=== PATIENT | male | born 2000 | race Caucasian/White ===

== ENCOUNTER 2022-10-27 14:47 | Inpatient (IN) ==
[2022-10-27] MEDS ORDERED: ONDANSETRON INJ 2 MG/ML 2 ML VIAL IV STA ×2 (15:11→18:07)
[2022-10-27] MEDS ORDERED: SODIUM CHLORIDE 0.9% 1000ML 1,000 ML IV ONE (15:11)
--- NOTE | 2022-10-27 15:30 | Emergency Department Note ---
History of Present Illness General Chief complaint: Vomiting Stated complaint: STOMACH PAINS, VOMITING, FUENTES Time Seen by Provider: 10/27/22 15:06 History of Present Illness Provider Complaint: + nausea, + vomiting and + abdominal pain Onset (ago): day(s) 1 Description of Vomiting: no bilious, no bloody or no coffee grounds Description of Diarrhea: no tarry, no blood-streaked or no bloody (bright red) Associated Abdominal Pain: Yes Location of pain: + diffuse Severity: moderate Maximum Pain Intensity: 8 Current Pain Intensity: 8 Quality: + aching Pain Consistency: + intermittent Relieved By: + none Exacerbated By: + eating Context: + alcohol abuse; no trauma, no caffeine, no smoking or no marijuana use Associated symptoms: no chest pain, no fever/chills, no headaches, no shortness of breath, no weakness or no altered mental status Home Medications Medication Instructions Recorded Confirmed Type calcium carbonate 200 mg calcium 400 mg PO DIRECTED PRN .gi-upset 10/27/22 10/27/22 History (500 mg) chewable tablet (Tums) cetirizine 10 mg tablet (Zyrtec) 10 mg PO DAILY PRN Allergic 10/27/22 10/27/22 History Reaction fluticasone propionate 50 2 spray intranasal DAILY PRN Nasal 10/27/22 10/27/22 History mcg/actuation nasal Congestion spray,suspension (Flonase Allergy Relief) ibuprofen 200 mg tablet (Advil) 400 mg PO Q6H PRN Pain 10/27/22 10/27/22 History ondansetron 4 mg disintegrating 4 mg PO Q8H PRN nausea and 10/27/22 Rx tablet vomiting #30 tabs Allergies Allergy/AdvReac Type Severity Reaction Status Date / Time No Known Allergies Allergy Unverified 10/27/22 20:35 Past Med/Surg History Medical History No pertinent family history No pertinent past medical history Surgical History No pertinent past surgical history Social History Smoking Status: Never smoker Hx Alcohol Use: Yes Alcohol type: hard liquor Hx Substance Use: Yes Last Used Substance Other:: Substance Use Type Other:: Patient stated once a week on Sundays Preferred Language: [place] Senior Environmental Technician Required: No Beliefs That Will Affect Care: None Current Living Situation: Other Current Living Situation Comment: Patient is one of three living together -in [employer] Other Information That Helps Us Care for You: No Feels Safe at Home: Yes Safety Concerns: Feels Safe At This Time Assistive Devices: None Review of Systems A total of 10 systems reviewed and were otherwise negative Physical Exam Vital Signs: Vital Signs - 24 hr 10/27/22 15:24 10/27/22 15:46 10/27/22 16:45 Pulse Rate [Finger ] 79 94 H Pulse Rhythm [Fing er] Pulse Strength [Fi nger] Respiratory Rate 16 18 Respiratory Effort / Characteristics Non-Labored Sponta neous Non-Labored Sponta neous Respiratory Depth Normal Normal Respiratory Patter n Blood Pressure [Le ft Arm] 141/94 H 120/75 Blood Pressure Jaja n [Left Arm] 109 90 Pulse Oximetry 98 99 98 Oxygen Delivery Me thod Room Air Room Air Room Air 10/27/22 18:02 10/27/22 20:00 Pulse Rate [Finger ] 84 67 Pulse Rhythm [Fing er] Regular Pulse Strength [Fi nger] Normal Respiratory Rate 18 18 Respiratory Effort / Characteristics Non-Labored Sponta neous Non-Labored Respiratory Depth Normal Normal Respiratory Patter n Regular Blood Pressure [Le ft Arm] 116/72 Blood Pressure Jaja n [Left Arm] 86 Pulse Oximetry 97 98 Oxygen Delivery Me thod Room Air Room Air Physical Exam: Physical Exam GENERAL: He is oriented to person, place, and time. He appears well-developed and well-nourished. He does not appear distressed. HENT: Exam performed. - Head: Normocephalic and atraumatic. - Right Ear: External ear normal. No mastoid tenderness. - Left Ear: External ear normal. No mastoid tenderness. - Mouth/Throat: The oropharynx is clear and moist. No trismus in the jaw. No dental abscesses or uvula swelling. No oropharyngeal exudate or tonsillar abscesses. EYES: Conjunctivae and EOM are normal. Pupils are equal, round, and reactive to light. Right eye exhibits no discharge. Left eye exhibits no discharge. No scleral icterus. NECK: Normal range of motion. Neck supple. No JVD present. No spinous process tenderness present. No carotid bruit present. No rigidity. No tracheal deviation and normal range of motion present. No Brudzinski's sign and no Kernig's sign n oted. CV: Normal rate, regular rhythm, normal heart sounds and intact distal pulses. There is no peripheral edema. Palpable radial pulses bue. PULM/CHEST: Effort normal and breath sounds normal. No respiratory distress. No stridor. He has no wheezes. He has no rales. - Chest Wall: He exhibits no tenderness. ABD: The abdomen is soft. Bowel sounds are normal. He has no distension. No mass is present. There is no tenderness. There is no rebound, no guarding, no Garrido's sign and no tenderness at McBurney's point. Rovsig negative. MUSC/SKEL: Normal range of motion. There is no peripheral edema, tenderness or deformity. LYMPH: No cervical adenopathy. NEURO: He is alert and oriented to person, place, and time. He has normal strength. No cranial nerve deficit or sensory deficit. Coordination and gait normal. GCS eye subscore is 4. GCS verbal subscore is 5. GCS motor subscore is 6. Cerebellar tests wnl. SKIN: Skin is warm and dry. He is not diaphoretic. PSYCH: He has a normal mood and affect. Behavior is normal. Judgment and thought content normal. Course Course 1506: The patient was evaluated in room C2. A complete history and physical exam was performed Cardiac monitoring: An order was placed for continuous cardiac monitoring. The monitor shows a rate of 80 with sinus rhythm 1811: Labs show leukocytosis of 14.89. Lipase is mildly elevated at 221. CT of the abdomen pelvis is pending. Case signed out to Dr. Orozco. Administered Medications Hydromorphone HCl (Hydromorphone Inj 0.5 Mg/0.5 Ml Syr) 0.5 mg IV Q3H PRN PRN Reason: Pain Stop: 11/10/22 20:58 Last Admin: 10/28/22 12:56 Dose: 0.5 mg Documented By: Admin: 10/28/22 02:18 Dose: 0.5 mg Documented By: JOSE ANTONIO Admin: 10/27/22 23:21 Dose: 0.5 mg Documented By: JOSE ANTONIO Acetaminophen (Ofirmev) 1,000 mg in 100 mls @ 400 mls/hr IV Q8H BRYCE Stop: 10/30/22 20:59 Last Infusion: 10/28/22 14:47 Dose: 0 mls/hr Documented By: Admin: 10/28/22 14:09 Dose: 400 mls/hr Documented By: Infusion: 10/28/22 06:00 Dose: 0 mls/hr Documented By: JOSE ANTONIO Admin: 10/28/22 05:41 Dose: 400 mls/hr Documented By: JOSE ANTONIO Infusion: 10/27/22 22:13 Dose: 0 mls/hr Documented By: JOSE ANTONIO Admin: 10/27/22 21:55 Dose: 400 mls/hr Documented By: CAN Lactated Ringer's (Lr) 1,000 mls @ 150 mls/hr IV .Q6H40M BRYCE Stop: 10/28/22 21:04 Last Admin: 10/28/22 14:57 Dose: 150 mls/hr Documented By: Infusion: 10/28/22 14:30 Dose: 150 mls/hr Documented By: Admin: 10/28/22 07:49 Dose: 150 mls/hr Documented By: LEELEE Ondansetron HCl (Ondansetron Inj 2 Mg/Ml 2 Ml Vial) 4 mg IV Q6H [facility] Stop: 11/26/22 20:14 Last Admin: 10/28/22 14:09 Dose: 4 mg Documented By: Admin: 10/28/22 07:51 Dose: 4 mg Documented By: Admin: 10/28/22 02:17 Dose: 4 mg Documented By: JOSE ANTONIO Admin: 10/27/22 21:55 Dose: 4 mg Documented By: CAN Discontinued Medications Sodium Chloride (Nss 1000ml) 1,000 mls @ 999 mls/hr IV .Q1H1M ONE Stop: 10/27/22 16:11 Last Infusion: 10/27/22 16:26 Dose: 0 mls/hr Documented By: Admin: 10/27/22 15:22 Dose: 999 mls/hr Documented By: IRMA Pantoprazole Sodium 40 mg/ (Syringe) 10 mls @ 5 mls/min IV NOW ONE Stop: 10/27/22 19:36 Last Admin: 10/27/22 20:35 Dose: 5 mls/min Documented By: NILO Famotidine (Pepcid 20mg Iv Push) 20 mg in 5 mls @ 2.5 mls/min IV NOW STA Stop: 10/27/22 19:36 Last Admin: 10/27/22 19:41 Dose: 2.5 mls/min Documented By: NILO Lactated Ringer's (Lr) 1,000 mls @ 250 mls/hr IV .Q4H [facility]YCE Stop: 10/28/22 04:14 Last Infusion: 10/28/22 06:19 Dose: 0 mls/hr Documented By: JOSE ANTONIO Admin: 10/28/22 02:16 Dose: 250 mls/hr Documented By: JOSE ANTONIO Infusion: 10/28/22 01:55 Dose: 250 mls/hr Documented By: JOSE ANTONIO Admin: 10/27/22 21:55 Dose: 250 mls/hr Documented By: CAN Pantoprazole Sodium 40 mg/ (Syringe) 10 mls @ 5 mls/min IV DAILY BRYCE Stop: 11/27/22 08:59 Last Admin: 10/28/22 07:51 Dose: 5 mls/min Documented By: LEELEE Ioversol (Optiray 350 100ml) 87 ml IV ONCE ONE Stop: 10/27/22 18:59 Last Admin: 10/27/22 18:59 Dose: 87 ml Documented By: LUPE Ketorolac Tromethamine (Ketorolac Tromethamine 15 Mg/Ml Vial) 15 mg IV NOW STA Stop: 10/27/22 16:29 Last Admin: 10/27/22 16:40 Dose: 15 mg Documented By: IRMA Lorazepam (Lorazepam 0.5 Mg Tab) 0.5 mg PO NOW STA Stop: 10/28/22 12:20 Last Admin: 10/28/22 12:56 Dose: 0.5 mg Documented By: YVAN Morphine Sulfate (Morphine Sulfate 4 Mg/Ml 1 Ml Carp\Vial) 4 mg IV NOW STA Stop: 10/27/22 18:08 Last Admin: 10/27/22 18:10 Dose: 4 mg Documented By: IRMA Ondansetron HCl (Ondansetron Inj 2 Mg/Ml 2 Ml Vial) 4 mg IV NOW STA Stop: 10/27/22 15:12 Last Admin: 10/27/22 15:22 Dose: 4 mg Documented By: IRMA Ondansetron HCl (Ondansetron Inj 2 Mg/Ml 2 Ml Vial) 4 mg IV NOW STA Stop: 10/27/22 18:08 Last Admin: 10/27/22 18:10 Dose: 4 mg Documented By: IRMA Medical Decision Making Laboratory Data Result diagrams: 10/28/22 07:35 10/28/22 07:35 Lab Results 10/27/22 10/27/22 10/27/22 Range/Units 15:21 15:21 15:21 WBC 14.89 H (4.8-10.8) K/ul RBC 5.42 (4.63-6.08) M/uL Hgb 16.3 (14.0-18.0) g/dl Hct 46.4 (40.1-51.0) % MCV 85.6 (80.0-100.0) fL MCH 30.1 (25.0-34.0) pg MCHC 35.1 (32.0-36.0) g/dL RDW Std Deviation 38.1 (36.4-46.3) fL RDW Coeff of Araceli 12.3 (11.5-14.5) % Plt Count 279 (130-400) K/uL MPV 11.1 (9.4-12.4) fL Immature Gran % (Auto) 1.3 % Neut % (Auto) 89.5 % Lymph % (Auto) 5.7 % Dane % (Auto) 3.2 % Eos % (Auto) 0.0 % Baso % (Auto) 0.3 % Neut # (Auto) 13.34 H (1.4-6.5) K/uL Lymph # (Auto) 0.85 L (1.2-3.4) K/uL Dane # (Auto) 0.47 (0.24-0.82) K/uL Eos # (Auto) 0.00 (0-0.50) K/uL Baso # (Auto) 0.04 (0-0.2) K/uL Immature Gran # (Auto) 0.19 H (0.00-0.02) K/uL Sodium 141 (136-145) mmol/L Potassium 4.1 (3.5-5.1) mmol/L Chloride 102 (98-107) mmol/L Carbon Dioxide 31 (21-32) mmol/L Anion Gap 8 (3-11) BUN 14 (6-23) mg/dl Creatinine 0.98 (0.6-1.4) mg/dl Est Cr Clr Drug Dosing 108.4 ml/min Est GFR ( Amer) 127.2 ml/min Est GFR (Non-Af Amer) 109.8 ml/min BUN/Creatinine Ratio 14.3 (10-20) Glucose 111 H (70-99(Fasting)) mg/dl Calcium 9.6 (8.5-10.1) mg/dl Total Bilirubin 0.5 (0.2-1.0) mg/dl Direct Bilirubin 0.1 (0-0.2) mg/dl AST 21 (13-39) U/L ALT 18 (7-52) U/L Alkaline Phosphatase 55 (34-104) U/L Total Protein 7.7 (6.0-8.3) gm/dl Albumin 4.9 (3.4-5.0) gm/dl Triglycerides 150 (0-150) mg/dl Lipase 221 H (11-82) U/L SARS-CoV-2, RNA, NAAT (NEGATIVE) 10/27/22 Range/Units 19:40 WBC (4.8-10.8) K/ul RBC (4.63-6.08) M/uL Hgb (14.0-18.0) g/dl Hct (40.1-51.0) % MCV (80.0-100.0) fL MCH (25.0-34.0) pg MCHC (32.0-36.0) g/dL RDW Std Deviation (36.4-46.3) fL RDW Coeff of Araceli (11.5-14.5) % Plt Count (130-400) K/uL MPV (9.4-12.4) fL Immature Gran % (Auto) % Neut % (Auto) % Lymph % (Auto) % Dane % (Auto) % Eos % (Auto) % Baso % (Auto) % Neut # (Auto) (1.4-6.5) K/uL Lymph # (Auto) (1.2-3.4) K/uL Dane # (Auto) (0.24-0.82) K/uL Eos # (Auto) (0-0.50) K/uL Baso # (Auto) (0-0.2) K/uL Immature Gran # (Auto) (0.00-0.02) K/uL Sodium (136-145) mmol/L Potassium (3.5-5.1) mmol/L Chloride (98-107) mmol/L Carbon Dioxide (21-32) mmol/L Anion Gap (3-11) BUN (6-23) mg/dl Creatinine (0.6-1.4) mg/dl Est Cr Clr Drug Dosing ml/min Est GFR ( Amer) ml/min Est GFR (Non-Af Amer) ml/min BUN/Creatinine Ratio (10-20) Glucose (70-99(Fasting)) mg/dl Calcium (8.5-10.1) mg/dl Total Bilirubin (0.2-1.0) mg/dl Direct Bilirubin (0-0.2) mg/dl AST (13-39) U/L ALT (7-52) U/L Alkaline Phosphatase (34-104) U/L Total Protein (6.0-8.3) gm/dl Albumin (3.4-5.0) gm/dl Triglycerides (0-150) mg/dl Lipase (11-82) U/L SARS-CoV-2, RNA, NAAT NEGATIVE (NEGATIVE) MDM Narrative 1506: The patient was evaluated in room C2. A complete history and physical exam was performed Cardiac monitoring: An order was placed for continuous cardiac monitoring. The monitor shows a rate of 80 with sinus rhythm 1811: Labs show leukocytosis of 14.89. Lipase is mildly elevated at 221. CT of the abdomen pelvis is pending. Case signed out to Dr. Orozco. Impression & Plan Abdominal pain, Nausea & vomiting Discharge Plan Visit Data Chief Complaint: Vomiting Stated Complaint: STOMACH PAINS, VOMITING, FUENTES ED Provider: Geoffrey Orozco Discharge Problem: Abdominal pain, Nausea & vomiting Patient Disposition: Admitted As Inpatient Discharge Instructions Interventions: ED Discharge Assessment Last Done: 10/27/22 20:41 : Abdominal pain Qualifiers: Abdominal location: unspecified location Qualified Code(s): R10.9 - Unspecified abdominal pain Nausea & vomiting Qualifiers: Vomiting type: unspecified Qualified Code(s): R11.2 - Nausea with vomiting, unspecified
[2022-10-27 15:32] LABS: Basophils # (auto) 0.04 K/uL (0-0.2); Basophils % (auto) 0.3 %; Hematocrit (blood only) 46.4 % (40.1-51.0); Hemoglobin 16.3 g/dl (14.0-18.0); Immature Granulocytes # (auto) 0.19 K/uL (0.00-0.02); Immature Granulocytes % (auto) 1.3 %; Lymphocytes # (auto) 0.85 K/uL (1.2-3.4); Lymphocytes % (auto) 5.7 %; Mean Corpuscular Hemoglobin 30.1 pg (25.0-34.0); Mean Corpuscular Hgb Conc 35.1 g/dL (32.0-36.0); Mean Corpuscular Volume 85.6 fL (80.0-100.0); Mean Platelet Volume 11.1 fL (9.4-12.4); Monocytes # (auto) 0.47 K/uL (0.24-0.82); Monocytes % (auto) 3.2 %; Neutrophils # (auto) 13.34 K/uL (1.4-6.5); Neutrophils % (auto) 89.5 %; Platelet Count 279 K/uL (130-400); RDW Coefficient of Variation 12.3 % (11.5-14.5); RDW Standard Deviation 38.1 fL (36.4-46.3); Red Blood Count 5.42 M/uL (4.63-6.08); White Blood Count 14.89 K/ul (4.8-10.8)
[2022-10-27 15:51] LABS: Albumin Level 4.9 gm/dl (3.4-5.0); BUN Creatinine Ratio 14.3 (10-20); Bilirubin Direct 0.1 mg/dl (0-0.2); Bilirubin,Total 0.5 mg/dl (0.2-1.0); Calcium 9.6 mg/dl (8.5-10.1); Creatinine Clr Calc Pharmacy 108.4 ml/min; Est GFR (African American) 127.2 ml/min; Est GFR (Non-African American) 109.8 ml/min; Potassium 4.1 mmol/L (3.5-5.1); Total Protein 7.7 gm/dl (6.0-8.3)
[2022-10-27] MEDS ORDERED: KETOROLAC TROMETHAMINE 15 MG/ML VIAL IV STA (16:28)
[2022-10-27] MEDS ORDERED: MoRPHine SULFATE 4 MG/ML 1 ML CARP\\VIAL IV STA (18:07)
--- NOTE | 2022-10-27 18:09 | Emergency Department Note ---
ED Visit Note I received this patient at change of shift signout from Dr. Loo. Please see his note for initial history and physical exam. The patient presented to the emergency department with a 1 day history of abdominal pain nausea and vomiting. His pain was rather diffuse. He was found to have an elevation in his white blood cell count. Further radiographic studies were ordered in the way of a CT of the abdomen and pelvis. This test is still pending and will help with the patient's disposition. He is tolerating the contrast well but still having significant pain. I ordered some pain medication. I will reevaluate the patient further pending his response to the pain medication as well as the CT report. IMPRESSION: 1. There is infiltration and fluid identified surrounding the pancreatic head and the duodenum as above. Findings favor acute pancreatitis. Duodenal pathology such as duodenitis or ulcer disease could also potentially have this appearance. Correlate with clinical findings and serum amylase/lipase levels. 2. The pancreas enhances throughout. No organized peripancreatic fluid collection is seen. 3. Normal appendix. 4. No intraperitoneal free air is identified. 5. Bladder distention. 6. Additional findings as above. ACT 112: Negative or not required by law. Electronically signed by: Mark Gambino M.D. 10/27/2022 7:[address] report does appear to be consistent with pancreatitis. The patient's laboratory studies also appear to be consistent with pancreatitis. He was started on a proton pump inhibitor as well as an H2 karthik. Given the degree of pain and his findings I will discuss his case with the hospitalist group for further inpatient management. . : Abdominal pain Qualifiers: Abdominal location: unspecified location Qualified Code(s): R10.9 - Unspecified abdominal pain Nausea & vomiting Qualifiers: Vomiting type: unspecified Qualified Code(s): R11.2 - Nausea with vomiting, unspecified
[2022-10-27] MEDS ORDERED: OPTIRAY 350 100ml IV ONE (18:58)
--- NOTE | 2022-10-27 19:21 | CT Scan Report ---
CT SCAN OF THE ABDOMEN AND PELVIS WITH IV CONTRAST CLINICAL HISTORY: Generalized abdominal pain. Vomiting COMPARISON STUDY: No priors. TECHNIQUE: Following the IV administration of 87 cc of Optiray 350, CT scan of the abdomen and pelvi s is performed from the lung bases to the proximal femora. Images are reviewed in the axial, sagittal , and coronal planes. IV contrast was administered without complication. Oral contrast was utilized. A dose lowering technique was utilized adhering to the principles of ALARA. CT DOSE: 265.17 mGy.cm FINDINGS: Lung bases: The heart is normal in size and without pericardial effusion. The lung bases are clear. Liver: The contrast-enhanced liver is normal in size, contour, and attenuation. There is no intrahepa tic biliary ductal dilatation. The hepatic veins and portal veins are patent. Gallbladder: Unremarkable. Spleen: Normal in size and attenuation. Pancreas: There is fluid and infiltration identified around the pancreatic head and the adjacent duod enum. This tracks inferiorly into the right retroperitoneal space. The pancreas is otherwise normal i n appearance. The gland enhances throughout and the duct is normal in caliber. No organized peripancr eatic fluid collection is identified. Adrenal glands: Unremarkable. Kidneys: The contrast enhanced kidneys are normal in size and without hydronephrosis. The kidneys enh ance symmetrically. Abdominal vasculature: The abdominal aorta is normal in course and caliber. Bowel: There is no bowel obstruction. Enteric contrast reaches the right colon. There is no duodenal wall thickening. The appendix is well-visualized and normal Peritoneum: There is no intraperitoneal free air or abdominal ascites. Lymphadenopathy: None. Pelvic viscera: The bladder is markedly distended but otherwise normal in appearance. The prostate an d seminal vesicles are normal as visualized. Skeletal structures: No lytic or blastic lesions are seen. IMPRESSION: 1. There is infiltration and fluid identified surrounding the pancreatic head and the duodenum as abo ve. Findings favor acute pancreatitis. Duodenal pathology such as duodenitis or ulcer disease could a lso potentially have this appearance. Correlate with clinical findings and serum amylase/lipase level s. 2. The pancreas enhances throughout. No organized peripancreatic fluid collection is seen. 3. Normal appendix. 4. No intraperitoneal free air is identified. 5. Bladder distention. 6. Additional findings as above. ACT 112: Negative or not required by law. Electronically signed by: Mark Gambino M.D. 10/27/2022 7:18 PM
[2022-10-27] MEDS ORDERED: FAMOTIDINE 20MG IV PUSH 20 MG/5 ML SYR IV STA (19:35)
[2022-10-27] MEDS ORDERED: PANTOprazole 40 MG in SYRINGE 0 ML IV ONE (19:35)
[2022-10-27] MEDS ORDERED: HYDROmorphone INJ 0.5 MG/0.5 ML SYR IM PRN (20:02)
--- NOTE | 2022-10-27 20:12 | History & Physical Report ---
Date of Service October 27, 2022 Assessment & Plan (1) Pancreatitis: Plan: 22-year-old male with no reported past medical history who presented to [facility] for evaluation of abdominal pain, subsequently found to have imaging and laboratory findings most likely second to acute pancreatitis secondary to alcohol use. Acute Pancreatitis On admission, found to have lipase level of 221 (not >3x ULN) alongside imaging findings consistent with infiltration/fluid around the pancreatic head and duodenum PLUS abdominal pain -- meeting criteria for acute pancreatitis (2/3) Given history of heavy alcohol consumption the night prior, most likely suspect the abdominal pain is secondary to this; duodenal ulcers is a lesser suspected, but possible, alternative etiology given NSAID use (2x Advil 3x/wk) + EtOH consumption. --> No triglyceridemia on labs, no gallstones/biliary issues on CT scanning. No family history of pancreatitis/autoimmune condition. No precipitating meds. LR @ 250cc/hr x 2L Tylenol every 8 scheduled>Dilaudid 0.5 mg every 3 hours as needed Zofran as needed Will schedule PPI b.i.d. 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 Counseling provided at the time of admission Plan Code: Full Diet: NPO for now, AAT PPX: Low risk Dispo: MS History of Present Illness Primary Care Provider: NO PCP Ish is a 22-year-old male with no reported past medical history presented to [facility] for evaluation of abdominal pain and nausea. Patient tells me that he was in his normal health up through this morning, when he woke up with a tight feeling in his belly. He says that this kind of felt like he just worked out hard at the gymbut did not recently do any workouts. He says as the morning went on, he began feeling nauseous and the pain got worse. He describes the pain is in the center of his belly radiating to his back.Alongside this, the nausea got worse and he reports vomiting at least 10-12 times as the day progressed. He was unable to keep any food or liquid down. He denies any urinary symptoms, denies any history of kidney or gallstones. Denies any fevers, chills, sweats. He denies any medications other than Flonase and Zyrtec. He does say that he uses Advil about 3 times a week on average, usually about 2 pills per event. He uses these for headaches. Has not used any recently. He does endorse going out to town last night and consuming about 4-5 alcoholic beverages. He says though that he was really trying to control himself, he because he had important responsibilities today. He does say about 2 days ago, he did consume about 8-9 drinks during a formal events. Denies recreational drug use or tobacco use. In the ER, patient was found to be hemodynamically stable with normal vital signs.His labs demonstrated a leukocytosis to 14.9 with left shift, normal kidney function, and elevated lipase to 221. COVID-negative.CT of the abdomen pelvis demonstrated infiltration of fluid around the pancreatic head and duodenum, favoring acute pancreatitis; However, radiologist did note that duodenitis/ulcer disease could not be ruled out. Otherwise, no acute findings.He was given fluids, nausea control, and pain medications. ----- This documentation was created utilizing dictation software. As such, syntax, grammatical, and word-choice errors may be present. Notes are screened prior to submission in an attempt to reduce these errors. If there are any questions or concerns, please contact the author directly for clarification. Allergies Allergy/AdvReac Type Severity Reaction Status Date / Time No Known Allergies Allergy Unverified 10/27/22 20:35 Home Medications Medication Instructions Recorded Confirmed Type calcium carbonate 200 mg calcium 400 mg PO DIRECTED PRN .gi-upset 10/27/22 10/27/22 History (500 mg) chewable tablet (Tums) cetirizine 10 mg tablet (Zyrtec) 10 mg PO DAILY PRN Allergic 10/27/22 10/27/22 History Reaction fluticasone propionate 50 2 spray intranasal DAILY PRN Nasal 10/27/22 10/27/22 History mcg/actuation nasal Congestion spray,suspension (Flonase Allergy Relief) ibuprofen 200 mg tablet (Advil) 400 mg PO Q6H PRN Pain 10/27/22 10/27/22 History ondansetron 4 mg disintegrating 4 mg PO Q8H PRN nausea and 10/27/22 Rx tablet vomiting #30 tabs Past Med/Surg History Medical History No pertinent family history No pertinent past medical history Surgical History No pertinent past surgical history Social History Smoking Status: Never smoker Hx Alcohol Use: Yes Alcohol type: hard liquor Hx Substance Use: Yes Last Used Substance Other:: Substance Use Type Other:: Patient stated once a week on Sundays Preferred Language: Samoan [employer] Required: No Beliefs That Will Affect Care: None Current Living Situation: Other Current Living Situation Comment: Patient is one of three living together -in College Other Information That Helps Us Care for You: No Feels Safe at Home: Yes Safety Concerns: Feels Safe At This Time Assistive Devices: None Review of Systems Review of Systems: as per HPI Physical Exam Physical Exam: General: 22-year old male who is alert, oriented, and appears in mild distress secondary to pain HEENT: NCAT. - Eyes - Sclera are white, anicteric, and without injection. - Mouth - MMM - Neck - supple, no appreciable JVD Cardiac: Normal rate and regular rhythm; S1 and S2 present with no murmurs, rubs, or gallops. Pulmonary: Good respiratory effort with symmetric expansion of the chest. No use of accessory muscles. Lungs were clear to auscultation bilaterally with no crackles or wheezes. Abdominal: Normoactive bowel sounds. Abdomen was soft, nondistended, and moderate tender to palpation Extremities: Upper and lower extremities are warm and well perfused. No peripheral edema in the lower extremities bilaterally Psych: Well-developed, well-nourished, appropriately dressed for occasion. Behavior is cooperative and appropriate. Affect is WNL. Insight is appropriate. Results & Data Results & Data ([facility]) Vital Signs (Past 12 Hours) Vital Signs Temp Pulse Pulse Resp BP BP Pulse Ox 10/27/22 18:02 84 18 116/72 97 10/27/22 16:45 94 H 18 120/75 98 10/27/22 15:46 79 16 141/94 H 99 10/27/22 15:24 98 10/27/22 14:50 36.1 C L 85 16 151/86 H 98 O2 Del Method 10/27/22 18:02 Room Air 10/27/22 16:45 Room Air 12/03/22 15:46 Room Air 10/27/22 15:24 Room Air 10/27/22 14:50 Room Air Code Status & VTE Plan VTE Prophylaxis Plan VTE Prophylaxis will be ordered: No Supervising Physician Co-Signing Physician Notes Patient seen and examined, chart reviewed, case discussed with Dr. Muniz and I agree with the assessment and plan as above. In brief, patient is a 22yo male presenting with acute pancreatitis. He has mid abdominal pain with radiation into the back. Mild elevation of lipase to [address] findings suggestive of pancreatitis. Patient did drink fairly heavily two nights ago and again yesterday. On exam he is resting, in mild discomfort Skin- warm, dry, intact HEENT - MMM, neck supple Heart - +S1/S2, regular Lungs - CTA Abd - +BS, soft, NT/ND Ext - no edema Labs and images reviewed Assessment/Plan - 22yo male with no significant past medical or surgical history presenting with acute pancreatitis. Normal Ca and TG levels. Most likely secondary to EtOH consumption. -Admit to medical -Hydration with LR at 250mL/hr x 2 liters -Pain control, anti emetics PRN -Remainder as above Resident Activity Tracking Resident Involvement: Resident Care Provided Care Provided: Adult Hospital Medicine
[2022-10-27] MEDS ORDERED: Patient's ALLERGY Info needs ENTERED SCH (20:15)
[2022-10-27] MEDS ORDERED: CALCIUM CARBONATE 500 MG CHEWABLE TAB PO PRN (20:59)
[2022-10-27] MEDS ORDERED: FLUTICASONE PROPIONATE NA SPR 16 GM BTL PRN (20:59)
[2022-10-27] MEDS ORDERED: CETIRIZINE HCL 10 MG TABLET PO PRN (20:59)
[2022-10-27] MEDS: ONDANSETRON INJ 2 MG/ML 2 ML VIAL IV SCH (21:55)
[2022-10-27] MEDS: ACETAMINOPHEN 1,000 MG/100 ML VIAL IV SCH (21:55)
[2022-10-27] MEDS: LACTATED RINGER'S 1,000 ML IV SCH (21:55)
[2022-10-27] MEDS: HYDROmorphone INJ 0.5 MG/0.5 ML SYR IV PRN (23:21)
--- NOTE | 2022-10-28 | Billing Data ---
Date of Service October 28, 2022 Coding Level of Care Code 48140 Initial Inpt Care Lvl 2
[2022-10-28] MEDS: LACTATED RINGER'S 1,000 ML IV SCH ×4 (02:16→20:57)
[2022-10-28] MEDS: ONDANSETRON INJ 2 MG/ML 2 ML VIAL IV SCH ×4 (02:17→20:51)
[2022-10-28] MEDS: HYDROmorphone INJ 0.5 MG/0.5 ML SYR IV PRN ×3 (02:18→16:48)
[2022-10-28] MEDS: ACETAMINOPHEN 1,000 MG/100 ML VIAL IV SCH ×3 (05:41→20:51)
[2022-10-28 08:13] LABS: Basophils # (auto) 0.03 K/uL (0-0.2); Basophils % (auto) 0.3 %; Eosinophils # (auto) 0.06 K/uL (0-0.50); Eosinophils % (auto) 0.6 %; Hematocrit (blood only) 41.6 % (40.1-51.0); Hemoglobin 14.2 g/dl (14.0-18.0); Immature Granulocytes # (auto) 0.07 K/uL (0.00-0.02); Immature Granulocytes % (auto) 0.7 %; Lymphocytes # (auto) 2.58 K/uL (1.2-3.4); Mean Corpuscular Hemoglobin 29.4 pg (25.0-34.0); Mean Corpuscular Hgb Conc 34.1 g/dL (32.0-36.0); Mean Corpuscular Volume 86.1 fL (80.0-100.0); Mean Platelet Volume 11.1 fL (9.4-12.4); Monocytes # (auto) 0.85 K/uL (0.24-0.82); Monocytes % (auto) 8.9 %; Neutrophils # (auto) 5.98 K/uL (1.4-6.5); Neutrophils % (auto) 62.5 %; Platelet Count 216 K/uL (130-400); RDW Coefficient of Variation 12.4 % (11.5-14.5); Red Blood Count 4.83 M/uL (4.63-6.08); White Blood Count 9.57 K/ul (4.8-10.8)
[2022-10-28] MEDS ORDERED: PANTOprazole 40 MG in SYRINGE 0 ML IV SCH (09:00)
--- NOTE | 2022-10-28 09:01 | Hospitalist Progress Note ---
Date of Service October 28, 2022 Assessment & Plan (1) Pancreatitis: Plan: 22-year-old male with no reported past medical history who presented to [facility] for evaluation of abdominal pain, subsequently found to have imaging and laboratory findings most likely secondary to acute pancreatitis, suspected to be secondary to alcohol use. Acute Pancreatitis : On admission, found to have lipase level of 221, imaging findings consistent with infiltration/fluid around the pancreatic head and duodenum, and abdominal pain -> diagnosed with acute pancreatitis. No triglyceridemia on labs, no gallstones/biliary issues on CT scanning. No family history of pancreatitis, but positive family history of celiac disease. No precipitating meds. TTG-IgA and Iga levels ordered. Continue LR @ 150cc/hr through to this evening. Advanced to low fat diet / for dinner. Tylenol every 8 scheduled, with Dilaudid 0.5 mg IV every 3 hours as needed for breakthrough pain. Zofran as needed. 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 Counseling provided at the time of admission. (3) Leukocytosis: Plan: - Present on admission, trend 14.89 -> 9.57 with IV fluids. - Suspect due to inflammation from pancreatitis, resolved at this time. Plan Code: Full Diet: Low fat diet, LR at 150cc/hr DVT PPX: Low risk, ambulate on demand Dispo: Med/Surg Admission and Anticipated Discharge Date Admission Date: October 27, 2022 Subjective Admitted last evening for pancreatitis. Vitals normal overnight. Today with some mild pain, no nausea, feeling hungry. No chest pain, SOB. Mother reports history in the family of celiac disease. Some pain overnight alleviated with Dilaudid. WBC 14.89->9.57 Review of Systems Review of Systems: All systems reviewed & are unremarkable except as noted in Subjective Physical Exam Constitutional: WD/WN, vitals as above Respiratory: normal respiratory effort, lungs clear to auscultation Cardiovascular: RRR, no murmur, no edema Gastrointestinal (Abdomen): normal bowel sounds, abdomen soft, moderately tender in epigastric region, no rebound or guarding Skin: no rashes, warm and dry Psychiatric: A+Ox3, euthymic affect Results & Data Results & Data ([facility]) Vital Signs (Past 12 Hours) Vital Signs Temp Pulse Resp BP Pulse Ox O2 Del Method 10/28/22 06:41 36.6 C 18 120/77 97 Room Air 10/27/22 23:00 37.2 C 67 18 124/71 95 Room Air PG Care Time/CCT Total # of Minutes Spent Total Time Spent with Patient: Total time spent is greater than 50% in coordination of care (as documented) at patient's floor/unit and/or counseling patient: Coding Level of Care Code 20009 Subseq Hosp Care Lvl 3 Diagnoses Pancreatitis K85.90 Alcohol use Z78.9 Leukocytosis D72.829
[2022-10-28 09:12] LABS: Albumin Globulin Ratio 1.9 (0.9-2); Albumin Level 3.9 gm/dl (3.4-5.0); BUN Creatinine Ratio 13.3 (10-20); Bilirubin,Total 0.9 mg/dl (0.2-1.0); Calcium 8.8 mg/dl (8.5-10.1); Creatinine Clr Calc Pharmacy 109.8 ml/min; Est GFR (African American) 127.2 ml/min; Est GFR (Non-African American) 109.8 ml/min; Globulin 2.1 gm/dl (2.5-4.0); Potassium 3.6 mmol/L (3.5-5.1)
[2022-10-28] MEDS ORDERED: LORazepam 0.5 MG TAB PO STA (12:19)
[2022-10-28] MEDS ORDERED: LORazepam 0.5 MG TAB PO PRN (18:19)
[2022-10-28] MEDS ORDERED: HYDROmorphone INJ 0.5 MG/0.5 ML SYR IV STA (18:20)
[2022-10-29] MEDS: HYDROmorphone INJ 0.5 MG/0.5 ML SYR IV PRN ×2 (00:07→04:07)
[2022-10-29] MEDS: ONDANSETRON INJ 2 MG/ML 2 ML VIAL IV SCH ×3 (01:31→13:58)
[2022-10-29] MEDS: ACETAMINOPHEN 1,000 MG/100 ML VIAL IV SCH ×2 (04:52→14:03)
[2022-10-29] MEDS ORDERED: SIMETHICONE 80 MG CHEW PO STA (05:04)
[2022-10-29] MEDS ORDERED: KETOROLAC TROMETHAMINE 15 MG/ML VIAL IV ONE (05:05)
[2022-10-29] MEDS ORDERED: DOCUSATE SODIUM 100 MG CAP PO STA (05:12)
[2022-10-29] MEDS ORDERED: SIMETHICONE 80 MG CHEW PO PRN (05:18)
--- NOTE | 2022-10-29 05:18 | Communication Note ---
Date of Service: October 29, 2022 notified by patient's RN that he was having new/worsening abd pain this AM at the bedside, Ish tells me that he has a cyclic, wave-like abdominal pain that is crampy in nature and extends across his anterior abdomen per RN, began a few hours after he had a full liquid meal -- which he actually tolerated really well it has kept him up through the latter portion of the night feels like he can't pass gas at all, feels bloated, notes that he has not had a BM in several days general - tired appearing male in nad abd - hyperactive-sounding bs. abd is moderately distended to palpation with mild ttp in the upper quadrants>lower quadrants. no rebound/guarding abd pain / bloating / cramping - suspect multifactorial; he has nicely advanced his diet and has been progressing well from the pancreatitis perspective, but in combination with some pressure buildup from likely opioid-induced constipation and peristalsis from his advancing meals, all issues are likely exacerbating one another. he has no h/o abdominal surgeries. -- check KUB -- attempt Toradol 15mg q6h PRN over Dilaudid when possible -- simethicone 80mg now and q6h prn -- Dulcolax now and thereafter b.i.d. -- hold on stimulant laxative right now can consider miralax if he continues to tolerate his diet well into the am and does not regress. plan discussed with TRUDY
[2022-10-29] MEDS ORDERED: KETOROLAC TROMETHAMINE 15 MG/ML VIAL IV PRN (05:25)
[2022-10-29] MEDS ORDERED: DOCUSATE SODIUM 100 MG CAP PO SCH ×2 (09:00→21:00)
--- NOTE | 2022-10-29 14:09 | XRay Report ---
XR KUB/Abdomen 1 view CLINICAL HISTORY: pancreatitis, distention, new abd pain TECHNIQUE: 1 view of the abdomen was obtained. Comparison: Comparison is made to CT abdomen pelvis 10/27/2022 FINDINGS: Lung bases are unremarkable. The osseous structures are grossly unremarkable. The bowel gas pattern i s nonobstructive. Retained contrast is seen in the rectum. IMPRESSION: Nonobstructive bowel gas pattern. ACT 112: Negative or not required by law. Electronically signed by: Chandu Pike M.D. 10/29/2022 2:08 PM
--- NOTE | 2022-11-05 15:28 | Discharge Summary ---
Date of Service October 29, 2022 Admission HPI Per Admitting Provider Ish is a 22-year-old male with no reported past medical history presented to [facility] for evaluation of abdominal pain and nausea. Patient tells me that he was in his normal health up through this morning, when he woke up with a tight feeling in his belly. He says that this kind of felt like he just worked out hard at the gymbut did not recently do any workouts. He says as the morning went on, he began feeling nauseous and the pain got worse. He describes the pain is in the center of his belly radiating to his back.Alongside this, the nausea got worse and he reports vomiting at least 10-12 times as the day progressed. He was unable to keep any food or liquid down. He denies any urinary symptoms, denies any history of kidney or gallstones. Denies any fevers, chills, sweats. He denies any medications other than Flonase and Zyrtec. He does say that he uses Advil about 3 times a week on average, usually about 2 pills per event. He uses these for headaches. Has not used any recently. He does endorse going out to town last night and consuming about 4-5 alcoholic beverages. He says though that he was really trying to control himself, he because he had important responsibilities today. He does say about 2 days ago, he did consume about 8-9 drinks during a formal events. Denies recreational drug use or tobacco use. In the ER, patient was found to be hemodynamically stable with normal vital signs.His labs demonstrated a leukocytosis to 14.9 with left shift, normal kidney function, and elevated lipase to 221. COVID-negative.CT of the abdomen pelvis demonstrated infiltration of fluid around the pancreatic head and duodenum, favoring acute pancreatitis; However, radiologist did note that duodenitis/ulcer disease could not be ruled out. Otherwise, no acute findi ngs.He was given fluids, nausea control, and pain medications. ----- This documentation was created utilizing dictation software. As such, syntax, grammatical, and word-choice errors may be present. Notes are screened prior to submission in an attempt to reduce these errors. If there are any questions or concerns, please contact the author directly for clarification. Principal Diagnosis acute pancreatitis Discharge Exam Constitutional: WD/WN, vitals as above Respiratory: normal respiratory effort, lungs clear to auscultation Cardiovascular: RRR, no murmur, no edema Gastrointestinal (Abdomen): normal bowel sounds, abdomen soft, non-tender in epigastric region, no rebound or guarding Skin: no rashes, warm and dry Psychiatric: A+Ox3, euthymic affect Discharge Data Allergies Allergy/AdvReac Type Severity Reaction Status Date / Time No Known Allergies Allergy Unverified 10/27/22 20:35 Consultations 10/27/22 19:54 ED Decision to Admit Stat Ordered Studies 10/27/22 15:46 CT abd pelvis oral and IV con Stat Hospital Course (1) Pancreatitis: 22-year-old male with no reported past medical history who presented to [facility] for evaluation of abdominal pain, subsequently found to h ave imaging and laboratory findings most likely secondary to acute pancreatitis, suspected to be secondary to alcohol use. Acute Pancreatitis : On admission, found to have lipase level of 221, imaging findings consistent with infiltration/fluid around the pancreatic head and duodenum, and abdominal pain -> diagnosed with acute pancreatitis. No triglyceridemia on labs, no gallstones/biliary issues on CT scanning. No family history of pancreatitis, but positive family history of celiac disease. No precipitating meds. TTG-IgA and Iga levels ordered. Continue LR @ 150cc/hr through to this evening. Advanced to low fat diet 10/28 for dinner. Tylenol every 8 scheduled, with Dilaudid 0.5 mg IV every 3 hours as needed for breakthrough pain. Zofran as needed. Patient improved on 10/29 Will recommend limiting alcohol intake and to continue a low fat diet. Patient improved with IV fluids. 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 Counseling provided at the time of admission. (3) Leukocytosis: - Present on admission, trend 14.89 -> 9.57 with IV fluids. - Suspect due to inflammation from pancreatitis, resolved at this time. Total Time Total Time Spent Total Time Spent (In Minutes): 35 Discharge Plan Discharge Items Patient Disposition: Home - Self-Care Reason For Visit: PANCREATITIS Discharge Diagnosis: pancreatitis Activity: Resume your previous activity Non-emergency contact: Primary Care Provider Call non-emergency contact if: you have any medication questions Follow-up/Referrals: PCP,NO [Primary Care Provider] - Diet: Low Fat Addtl Attending Provider Instructions: Recommend followup with PCP in 1-2 weeks or with S. Recommend limiting alcohol intake as this could injure your pancreas and provoke another attack. Would recommend tylenol for pain relief, do not mix tylenol with alcohol as this can lead to liver damage. Low-fat foods to choose from Dairy and dairy-like products * Low-fat (1%) or fat-free (skim) yogurt, cottage cheese, or milk * [place] or light cream cheese or fat-free cream cheese * Fat-free Afghan cheese or other types of fat-free cheeses Fish, meat, poultry, and other protein * Egg whites or egg substitutes * Crab, white fish, shrimp, and light tuna (packed in water) * Chicken and turkey breast (without skin), or ground turkey breast * Beans, peas, and lentils, cooked (or canned) without added fats or fatty meats (grains or cereal in your daily food intake make this add up to a complete protein) * Veggie burgers Grains, cereals, and pastas * Hot (oatmeal or grits) and cold cereals (except granola types) * Rice or noodles (watch out for fat in sauces you may add). Choose whole grain versions like brown rice * Whole grain bagels, natalie bread, or Croatian muffins * Low-fat crackers and breads * Soft tortillas corn or whole wheat Fruits and vegetables * Fruits, including fresh, frozen, or canned (in their own juice) * Vegetables, including fresh, frozen, or canned (choose lower-sodium varieties) Other foods * Broth type soups with a vegetable base * Sauces, pudding, or shakes made with skim milk * Salsa * Mustard Pending Studies at Discharge: No Stand-Alone Forms: My [facility] [employer], Work/School Release, Smoking Cessation Medications and DC Order Prescriptions: New simethicone 80 mg tablet,chewable 80 mg PO BID PRN (Reason: abdominal distention) Qty: 30 0RF Continued cetirizine [Zyrtec] 10 mg Tablet 10 mg PO DAILY PRN (Reason: Allergic Reaction) calcium carbonate [Tums] 200 mg calcium (500 mg) Tablet,Chewable 400 mg PO DIRECTED PRN (Reason: .gi-upset) ibuprofen [Advil] 200 mg Tablet 400 mg PO Q6H PRN (Reason: Pain) fluticasone propionate [Flonase Allergy Relief] 50 mcg/actuation [place],Suspension 2 spray INTRANASAL DAILY PRN (Reason: Nasal Congestion) Rx Instructions: administer into each nostril Discharge Orders: Discharge Order (Routine); Ordered 10/29/22 Ordered By: Manfred Fajardo Admission Data Admit Date/Time: 10/27/22 20:01 Attending Provider: Manfred Fajardo Admit Provider: Ish Muniz Primary Care Provider: PCP,NO Other Interventions: Discharge Summary Assessment (RN) Last Done: 10/29/22 18:19 Coding Level of Care Code D/C DAY MANAGEMENT >30 MINS Diagnoses Pancreatitis K85.90 Alcohol use Z78.9 Leukocytosis D72.829
== END 2022-10-29 18:55 | disposition home or self-care (01) | DRG 440 ==
LOC: ED 14:47 → SUATTDRO 20:01 → 3N 20:01
DX: F10.90 Alcohol use, unspecified, uncomplicated; K85.90 Acute pancreatitis without necrosis or infection, unspecified; D72.829 Elevated white blood cell count, unspecified; Z79.899 Other long term (current) drug therapy